=== PATIENT | female | born 1975 | race Caucasian/White ===

== ENCOUNTER 2019-07-10 13:01 | Emergency (ER) | payer OTHER, SELFPAY ==
[2019-07-10 13:16] VITALS: BP 132/67; PULSE 69; RESP 16; TEMP 37.1; O2SAT 99
--- NOTE | 2019-07-10 13:20 | ED.GENADULT ---
HPI - General Adult General Chief complaint: Urogenital-Female Stated complaint: Urination/burn/frequent Time Seen by Provider: 07/10/19 13:22 Source: patient Mode of arrival: ambulatory Limitations: no limitations History of Present Illness HPI narrative: 44-year-old female patient presents to the [facility] with complaints of urinary symptoms for the past 2 to 3 weeks. Patient states that her symptoms of gotten increasingly worse with pain on urination, urgency, frequency. Patient denies any abdominal pain, low back pain, fevers, nausea, vomiting or diarrhea. Patient denies any or breast-feeding at this time. Patient states that she has had a little bit of itching, irritation a little bit of vaginal discharge that she has noticed recently. Patient states that she was seen by her primary doctor in May for what she thought might be a UTI however at that time her doctor states that he did not really see any evidence on her urine dip but thought it might just be starting so he treated her with Keflex. Patient states that some of her symptoms did improve but never felt like it totally went away. Patient states that she recently did get out of the relationship of a boyfriend that was cheating on her. Patient states she has never had an STD that she knows of. Patient denies being tested for STDs in the past. Related Data Home Medications Medication Instructions Recorded Confirmed atorvastatin 20 mg PO DAILY 07/10/19 07/10/19 lisinopril-hydrochlorothiazide 1 tablet PO DAILY 07/10/19 07/10/19 [Zestoretic] Allergies Allergy/AdvReac Type Severity Reaction Status Date / Time No Known Allergies Allergy Unknown Unverified 07/10/19 13:23 Review of Systems Review of Systems: Narrative: CONSTITUTIONAL: Denies fever, chills, or sweats. EYES: Denies visual changes, redness, or discharge. ENT: Denies rhinorrhea, congestion, sore throat, or otalgia. CARDIOVASCULAR: Denies chest pain, palpitations, or edema. RESPIRATORY: Denies cough or dyspnea. GASTROINTESTINAL: Denies abdominal pain, nausea, vomiting, or diarrhea. GENITOURINARY: Denies dysuria or hematuria. Positive pain with urination, urgency, frequency, vaginal discharge and vaginal irritation x2 to 3 weeks SKIN: Denies rash or itching. MUSCULOSKELETAL: Denies back pain, joint pain, or myalgia. NEUROLOGIC: Denies headache, numbness, or weakness. PSYCHIATRIC: Denies anxiety or depression. PMFSH Social History Social History Gender identity (if verbalized by the patient): Female Comments At the time of my signature I agree with nursing past medical history, surgical, social, and family history. There is no relevant family history pertinent to the presenting complaint. Exam Narrative: Exam Narrative: GENERAL: Well-appearing, well-nourished, and in no acute distress. HEAD: Normocephalic, atraumatic. EYES: PERRLA and EOMI. ENT: Nares clear, no rhinorrhea or epistaxis. Mucous membranes moist. NECK: Supple. No lymphadenopathy CHEST: Clear to auscultation. No respiratory distress. HEART: Regular rate and rhythm. No murmur heard. Normal peripheral pulses. ABDOMEN: Soft, nontender, nondistended, normal active bowel sounds. No CVA tenderness on percussion : Normal external female genitalia. OS is closed. No adnexal fullness or TTP. No CVA tenderness to percussion. EXTREMITIES: Normal range of motion. No edema. SKIN: Warm, dry, no rash. NEURO: No focal deficits. Alert and oriented x3. Course Vital Signs Vital signs: Vital Signs Temperature 37.1 C 07/10/19 13:16 Pulse Rate 69 07/10/19 13:16 Respiratory Rate 16 07/10/19 13:16 Blood Pressure 132/67 07/10/19 13:16 Pulse Oximetry 99 07/10/19 13:16 Temperature 37.1 C 07/10/19 13:16 Pulse Rate 69 07/10/19 13:16 Respiratory Rate 16 07/10/19 13:16 Blood Pressure 132/67 07/10/19 13:16 Pulse Oximetry 99 07/10/19 13:16 Vital signs
[2019-07-10] MEDS: AZITHROMYCIN 250 MG TABLET 1000 MG PO (13:46)
[2019-07-10] MEDS: LIDOCAINE HCL 1% LOCAL INJ 20 ML VIAL IM (13:48)
[2019-07-10] MEDS: cefTRIAXone 250 MG VIAL IM (13:49)
== END 2019-07-10 14:06 | disposition home or self-care (01) ==
PROVIDERS: Emergency Provider Nurse Practitioner Family; PCP Internal Medicine Gastroenterology
DX: R30.0 Dysuria (principal); E78.00 Pure hypercholesterolemia, unspecified; I10 Essential (primary) hypertension
CPT/HCPCS: 81003; 87077; 87086; 87088; 87186; 87491; 87591; 87661; 96372; 99214; A9270; G0463; J0696

== ENCOUNTER 2019-08-10 08:28 | Emergency (ER) | payer OTHER, SELFPAY ==
--- NOTE | 2019-08-10 08:38 | ED.SKABFB ---
HPI - Skin/Abscess/Foreign Bdy General Chief complaint: Skin/Abscess/Foreign Body Stated complaint: Rash Time Seen by Provider: 08/10/19 08:38 Source: patient and RN notes reviewed History of Present Illness HPI narrative: Patient is a 44-year-old female that presents the urgent care with complaints of poison nichole to the abdomen, face, stomach, surrounding the right eye. Patient states that she was doing yard work on Tuesday and she has been using [id number] allergy pills, calamine lotion and TecNu scrub. Patient states that she feels it is getting worse . No other acute complaints. Denies any shortness of breath. No acute distress noted. Patient read the plan of care. Related Data Home Medications Medication Instructions Recorded Confirmed atorvastatin [Lipitor] 20 mg PO DAILY 08/10/19 08/10/19 lisinopril-hydrochlorothiazide 1 tablet PO DAILY 08/10/19 08/10/19 [Zestoretic] Allergies Allergy/AdvReac Type Severity Reaction Status Date / Time No Known Allergies Allergy Unknown Verified 08/10/19 08:51 Review of Systems Review of Systems: Narrative: CONSTITUTIONAL: Denies fever, chills, or sweats. EYES: Denies visual changes, redness, or discharge. Reports of increased puffiness and swelling surrounding the right eye ENT: Denies rhinorrhea, congestion, sore throat, or otalgia. CARDIOVASCULAR: Denies chest pain, palpitations, or edema. RESPIRATORY: Denies cough or dyspnea. GASTROINTESTINAL: Denies abdominal pain, nausea, vomiting, or diarrhea. GENITOURINARY: Denies dysuria or hematuria. SKIN: Reports of poison nichole to the abdomen, bilateral arms, face and right eye MUSCULOSKELETAL: Denies back pain, joint pain, or myalgia. NEUROLOGIC: Denies headache, numbness, or weakness. All other systems reviewed are negative, except as documented in HPI. PMFSH Social History Social History Gender identity (if verbalized by the patient): Female Comments At the time of my signature, I reviewed and agree with the nursing past medical, surgical, social, and family history. There is no relevant family history pertinent to the patient complaint. Exam Narrative: Exam Narrative: GENERAL: This is a well-nourished, well-developed patient, in no apparent distress. HEAD: normocephalic, atraumatic. EYES: PERRL. Sclera clear/white. Vision is grossly intact. Moderate edema, erythema periorbital cellulitis to the right eye. EARS: External ears normal NOSE: External nose normal with no obvious nasal discharge THROAT: Mucous membranes moist NECK: Neck supple CARDIOVASCULAR: Regular rate and rhythm without murmurs, gallops, or rubs. RESPIRATORY: Clear to auscultation. Breath sounds equal bilaterally. No wheezes, rales, or rhonchi. SKIN: Pruritic oozing clear drainage ruse dermatitis noted to the face, right abdomen, bilateral antecubital fossa's NEURO: awake, alert, and oriented to person, place and time. There were no obvious focal neurologic abnormalities. EXTREMITIES: No clubbing, cyanosis, or edema. Course Vital Signs Vital signs: Vital Signs Temperature 98.1 F 08/10/19 08:44 Pulse Rate 73 08/10/19 08:44 Respiratory Rate 18 08/10/19 08:44 Blood Pressure 155/97 H 08/10/19 08:44 Pulse Oximetry 100 08/10/19 08:44 Temperature 98.1 F 08/10/19 08:44 Pulse Rate 73 08/10/19 08:44 Respiratory Rate 18 08/10/19 08:44 Blood Pressure 155/97 H 08/10/19 08:44 Pulse Oximetry 100 08/10/19 08:44 Reviewed?patient is informed that they may have pre-hypertension or hypertension based on a blood pressure reading in the department. I recommend the patient call the primary care provider listed on their discharge instructions or a physician of their choice this week to arrange follow-up for further evaluation of possible pre-hypertension or hypertension. MDM - Skin/Abscess/Foreign Bdy MDM Narrative Medical decision making narrative: Advised the patient to clean any
[2019-08-10 08:44] VITALS: BP 155/97; PULSE 73; RESP 18; TEMP 36.7; O2SAT 100
[2019-08-10] MEDS: predniSONE 20 MG TABLET 60 MG PO (09:01)
--- NOTE | 2019-08-10 09:23 | PC.NURSE ---
0845- Pt states she has not taken her HTN medication yet this am.
== END 2019-08-10 09:17 | disposition home or self-care (01) ==
PROVIDERS: Emergency Provider Nurse Practitioner Family; PCP Internal Medicine Gastroenterology
DX: L23.7 Allergic contact dermatitis due to plants, except food (principal); H05.011 Cellulitis of right orbit; E78.00 Pure hypercholesterolemia, unspecified; I10 Essential (primary) hypertension
CPT/HCPCS: 99213; G0463; J7512

== ENCOUNTER 2021-10-07 09:35 | Emergency (ER) | payer OTHER, SELFPAY ==
[2021-10-07 09:42] VITALS: BP 154/88; PULSE 67; RESP 16; TEMP 35.9; O2SAT 100
--- NOTE | 2021-10-07 09:56 | ED.EYEPROB ---
HPI - Eye Problem General Chief complaint: Skin/Abscess/Foreign Body Stated complaint: right eye pain Time Seen by Provider: 10/07/21 09:57 Source: patient Mode of arrival: ambulatory Limitations: no limitations History of Present Illness HPI Narrative: 46 yo female presented for complaint of right eye swelling and itching for 3 days. States the right eye was swollen shut this morning, but is improving. Endorses rash to face/cheeks. She states she was doing yard work and pulling weeds the day prior to the rash. She has applied calamine lotion and taking Benadryl with minimal relief. She denies any other lesions or locations of rash. Denies lip, tongue, throat swelling, shortness of breath or wheezing. Denies eye pain, vision changes, or drainage. She denies foreign body sensation or photophobia. She denies changes to soap, lotion, detergent etc. Related Data Home Medications Medication Instructions Recorded Confirmed atorvastatin 20 mg tablet (Lipitor) 20 mg PO DAILY 08/10/19 10/07/21 lisinopril 20 1 tablet PO DAILY 08/10/19 10/07/21 mg-hydrochlorothiazide 12.5 mg tablet (Zestoretic) Allergies Allergy/AdvReac Type Severity Reaction Status Date / Time No Known Allergies Allergy Unknown Verified 08/10/19 08:51 Review of Systems Review of Systems: CONSTITUTIONAL: Denies body aches, fever, chills, or sweats. EYES: Denies visual changes, redness, or discharge. ENT: Denies rhinorrhea, congestion, sore throat, or otalgia. CARDIOVASCULAR: Denies chest pain, palpitations, or edema. RESPIRATORY: Denies cough or dyspnea. GASTROINTESTINAL: Denies abdominal pain, nausea, vomiting, or diarrhea. SKIN: Reports rash, itching NEUROLOGIC: Denies headache, numbness, tingling, or weakness. [facility] Social History Social History Gender identity (if verbalized by the patient): Female Comments At time of signature, I have reviewed and agree with nursing past medical, surgical, social and family history unless otherwise noted. Please see nursing chart for further information. There is no relevant family history pertinent to the presenting complaint Exam Narrative: GENERAL: Well-appearing, no distress HEAD: Normocephalic, atraumatic. EYES: PERRLA, conjunctivae clear, and EOMI. moderate right periorbital cellulitis, mild erythema. No active drainage. It is not swollen shut. ENT: Mucous membranes moist. Oropharynx without edema, erythema or lesions. NECK: Supple. No lymphadenopathy CHEST: Clear to auscultation. No respiratory distress. HEART: Regular rate and rhythm. SKIN: Warm, dry. Scattered patches of erythematous papules consistent with dermatitis to bilateral cheeks. Right groin with pale pink area, endorses itching, consistent with mild yeast NEURO: Alert and oriented x3. PSYCH: Normal mood and affect Course Course Emergency Course: Patient is aware of diagnosis, understands and agrees to treatment plan. Anticipatory guidance given. Patient agrees to follow-up as directed and is aware of reasons to seek care at the emergency department. Portions of this record may have been created with voice recognition software Level of Care: Express Care Visit Vital Signs Vital signs: Vital Signs Temperature 96.7 F L 10/07/21 09:42 Pulse Rate 67 10/07/21 09:42 Respiratory Rate 16 10/07/21 09:42 Blood Pressure 154/88 H 10/07/21 09:42 Pulse Oximetry 100 10/07/21 09:42 Oxygen Delivery Room Air 10/07/21 09:42 Temperature 96.7 F L 10/07/21 09:42 Pulse Rate 67 10/07/21 09:42 Respiratory Rate 16 10/07/21 09:42 Blood Pressure 154/88 H 10/07/21 09:42 Pulse Oximetry 100 10/07/21 09:42 Oxygen Delivery Room Air 10/07/21 09:42 Reviewed MDM - Eye Problem MDM Narrative Medical decision making narrative: She is advised on [id number] Desenex powder for the right groin redness and itching. Does not appear at this time to be er
== END 2021-10-07 10:12 | disposition home or self-care (01) ==
PROVIDERS: Emergency Provider Nurse Practitioner Family
DX: L03.213 Periorbital cellulitis (principal); L25.9 Unspecified contact dermatitis, unspecified cause; E78.00 Pure hypercholesterolemia, unspecified; I10 Essential (primary) hypertension
CPT/HCPCS: 99213; G0463

== ENCOUNTER 2022-08-26 13:50 | Outpatient (CLI) | payer OTHER, SELFPAY ==
--- NOTE | ~2022-08-26 | MM_ITS ---
EXAMINATION: MM screening mike BI w gabino HISTORY: Screening mammogram TECHNIQUE: Craniocaudal and mediolateral oblique 3-D tomosynthesis images were obtained and synthetic 2-D images were generated. CAD analysis was submitted and interpreted. COMPARISON: No prior mammogram is available for comparison at this institution. BREAST PARENCHYMAL COMPOSITION: There are scattered areas of fibroglandular density. FINDINGS: There is no evidence of suspicious mass, calcification, or architectural distortion to sugg est malignancy in either breast. There has been no suspicious interval change. IMPRESSION: 1. No mammographic evidence of malignancy. 2. Recommend routine screening mammography in one year. BI-RADS Category 1: Negative Reviewed, dictated and finalized at location A.
== END 2022-08-26 13:51 ==
PROVIDERS: PCP Internal Medicine Gastroenterology; Visit Provider Nurse Practitioner Obstetrics & Gynecology
DX: Z12.31 Encounter for screening mammogram for malignant neoplasm of breast (principal)
CPT/HCPCS: 77063; 77067

== ENCOUNTER 2023-09-05 13:41 | Emergency (ER) | payer OTHER, SELFPAY ==
[2023-09-05 13:55] VITALS: BP 150/88; PULSE 64; RESP 18; TEMP 36.8; O2SAT 100
--- NOTE | 2023-09-05 13:56 | ED.FEMALEGU ---
HPI - Female Genitourinary General Chief complaint: Urogenital-Female Stated complaint: urinary issue Time Seen by Provider: 09/05/23 13:56 Source: patient Mode of arrival: ambulatory Limitations: no limitations History of Present Illness HPI Narrative: 48-year-old female presents with complaint of urinary frequency, urgency, dysuria for 2 days. Afebrile. Patient concerned for urinary tract infection. Patient also reports itching and dry skin to upper eyelids for 1 week. Call primary care physician for appointment and cannot see patient for 1 month. All systems reviewed and negative except as noted above. Related Data Home Medications Medication Instructions Recorded Confirmed atorvastatin 20 mg tablet (Lipitor) 20 mg PO DAILY 08/10/19 09/05/23 diltiazem HCl 120 mg 120 mg PO DAILY 09/05/23 09/05/23 capsule,extended release 24 hr lisinopril 20 1 tablet PO DAILY 09/05/23 09/05/23 mg-hydrochlorothiazide 25 mg tablet Allergies Allergy/AdvReac Type Severity Reaction Status Date / Time No Known Allergies Allergy Unknown Verified 08/10/19 08:51 Review of Systems Review of Systems: CONSTITUTIONAL: Denies fever, chills, or sweats. EYES: Denies visual changes, redness, or discharge. ENT: Denies rhinorrhea, congestion, sore throat, or otalgia. CARDIOVASCULAR: Denies chest pain, palpitations, or edema. RESPIRATORY: Denies cough or dyspnea. GASTROINTESTINAL: Denies abdominal pain, nausea, vomiting, or diarrhea. GENITOURINARY: Reports dysuria, frequency, urgency. Denies hematuria. SKIN: Denies rash. Reports itching dry skin to upper eyelids. MUSCULOSKELETAL: Denies back pain, joint pain, or myalgia. NEUROLOGIC: Denies headache, numbness, or weakness. PSYCHIATRIC: Denies anxiety or depression. All other systems reviewed are negative, except as documented in HPI. PMFSH Social History Social History Gender identity (if verbalized by the patient): Female Comments At time of signature, agree with nursing past medical, surgical, social and family history. There is no relevant family history pertinent to the presenting complaint. Exam Narrative: GENERAL: This is a well-nourished, well-developed patient, in no apparent distress. HEAD: normocephalic, atraumatic. EYES: PERRL. Sclera clear/white. Vision is grossly intact. EARS: External ears normal NOSE: External nose normal NECK: Neck supple, non-tender without lymphadenopathy, masses or thyromegaly. CARDIOVASCULAR: Regular rate and rhythm without murmurs, gallops, or rubs. RESPIRATORY: Clear to auscultation. Breath sounds equal bilaterally. No wheezes, rales, or rhonchi. SKIN: warm, Dry, intact with no suspicious lesions or rash, good texture and turgor. Erythematous, dry skin to bilateral upper eyelids NEURO: awake, alert, and oriented to person, place and time. There were no obvious focal neurologic abnormalities. EXTREMITIES: No joint tenderness, effusion, or edema noted. Course Course Level of Care: Express Care Visit Vital Signs Vital signs: Vital Signs Temperature 36.8 C 09/05/23 13:55 Pulse Rate 64 09/05/23 13:55 Respiratory Rate 18 09/05/23 13:55 Blood Pressure 150/88 H 09/05/23 13:55 Pulse Oximetry 100 09/05/23 13:55 Oxygen Delivery Room Air 09/05/23 13:55 Temperature 36.8 C 09/05/23 13:55 Pulse Rate 64 09/05/23 13:55 Respiratory Rate 18 09/05/23 13:55 Blood Pressure 150/88 H 09/05/23 13:55 Pulse Oximetry 100 09/05/23 13:55 Oxygen Delivery Room Air 09/05/23 13:55 reviewed MDM - Female Genitourinary MDM Narrative Medical decision making narrative: Patient is aware of diagnosis, understands and agrees to treatment plan. Anticipatory guidance given. Patient agrees to follow-up as directed and is aware of reasons to seek care at the emergency department. Portions of this record may have been created with voice recognition softw
== END 2023-09-05 14:20 | disposition home or self-care (01) ==
PROVIDERS: Emergency Provider Nurse Practitioner Family; PCP Internal Medicine Gastroenterology
DX: N39.0 Urinary tract infection, site not specified (principal); H01.134 Eczematous dermatitis of left upper eyelid; H01.131 Eczematous dermatitis of right upper eyelid
CPT/HCPCS: 81003; 87077; 87086; 87088; 87147; 87186; 99213; G0463

== ENCOUNTER 2023-10-19 08:42 | Emergency (ER) | payer OTHER, SELFPAY ==
[2023-10-19 08:58] VITALS: BP 133/63; PULSE 63; RESP 16; TEMP 36.8; O2SAT 99
--- NOTE | 2023-10-19 09:06 | ED.FEMALEGU ---
HPI - Female Genitourinary General Chief complaint: Urogenital-Female Stated complaint: urinary issue Time Seen by Provider: 10/19/23 09:06 Source: patient Mode of arrival: ambulatory Limitations: no limitations History of Present Illness HPI Narrative: 48-year-old female presents with complaint of urinary frequency, urgency, dysuria for 3 days. Afebrile. No back or abdominal pain. Denies nausea vomiting. Reports she had same symptoms approximately 1 month ago, had a urinary tract infection. All Systems reviewed and negative except as noted above. Related Data Home Medications Medication Instructions Recorded Confirmed atorvastatin 20 mg tablet (Lipitor) 20 mg PO DAILY 08/10/19 10/19/23 diltiazem HCl 120 mg 120 mg PO DAILY 09/05/23 10/19/23 capsule,extended release 24 hr lisinopril 20 1 tablet PO DAILY 09/05/23 10/19/23 mg-hydrochlorothiazide 25 mg tablet Allergies Allergy/AdvReac Type Severity Reaction Status Date / Time No Known Allergies Allergy Unknown Verified 10/19/23 09:06 Review of Systems Review of Systems: CONSTITUTIONAL: Denies fever, chills, or sweats. EYES: Denies visual changes, redness, or discharge. ENT: Denies rhinorrhea, congestion, sore throat, or otalgia. CARDIOVASCULAR: Denies chest pain, palpitations, or edema. RESPIRATORY: Denies cough or dyspnea. GASTROINTESTINAL: Denies abdominal pain, nausea, vomiting, or diarrhea. GENITOURINARY: reports dysuria, urgency, frequency. Denies hematuria. SKIN: Denies rash or itching. MUSCULOSKELETAL: Denies back pain, joint pain, or myalgia. NEUROLOGIC: Denies headache, numbness, or weakness. PSYCHIATRIC: Denies anxiety or depression. All other systems reviewed are negative, except as documented in HPI. PMFSH Social History Social History Gender identity (if verbalized by the patient): Female Comments At time of signature, agree with nursing past medical, surgical, social and family history. There is no relevant family history pertinent to the presenting complaint. Exam Narrative: GENERAL: This is a well-nourished, well-developed patient, in no apparent distress. HEAD: normocephalic, atraumatic. EYES: PERRL. Sclera clear/white. Vision is grossly intact. EARS: External ears normal NOSE: External nose normal NECK: Neck supple, non-tender without lymphadenopathy, masses or thyromegaly. CARDIOVASCULAR: Regular rate and rhythm without murmurs, gallops, or rubs. RESPIRATORY: Clear to auscultation. Breath sounds equal bilaterally. No wheezes, rales, or rhonchi. SKIN: warm, Dry, intact with no suspicious lesions or rash, good texture and turgor. NEURO: awake, alert, and oriented to person, place and time. There were no obvious focal neurologic abnormalities. EXTREMITIES: No joint tenderness, effusion, or edema noted. Course Course Level of Care: Express Care Visit Vital Signs Vital signs: Vital Signs Temperature 36.8 C 10/19/23 08:58 Pulse Rate 63 10/19/23 08:58 Respiratory Rate 16 10/19/23 08:58 Blood Pressure 133/63 10/19/23 08:58 Pulse Oximetry 99 10/19/23 08:58 Oxygen Delivery Room Air 10/19/23 08:58 Temperature 36.8 C 10/19/23 08:58 Pulse Rate 63 10/19/23 08:58 Respiratory Rate 16 10/19/23 08:58 Blood Pressure 133/63 10/19/23 08:58 Pulse Oximetry 99 10/19/23 08:58 Oxygen Delivery Room Air 10/19/23 08:58 reviewed MDM - Female Genitourinary MDM Narrative Medical decision making narrative: Patient is aware of diagnosis, understands and agrees to treatment plan. Anticipatory guidance given. Patient agrees to follow-up as directed and is aware of reasons to seek care at the emergency department. Portions of this record may have been created with voice recognition software Differential Diagnosis Differential diagnosis: Likely urinary tract infection Lab Data Labs: Urine Glucose Negative
== END 2023-10-19 09:16 | disposition home or self-care (01) ==
PROVIDERS: Emergency Provider Nurse Practitioner Family
DX: N39.0 Urinary tract infection, site not specified (principal); B96.20 Unspecified Escherichia coli [E. coli] as the cause of diseases classified elsewhere; E78.00 Pure hypercholesterolemia, unspecified; I10 Essential (primary) hypertension
CPT/HCPCS: 81003; 87077; 87086; 87088; 87186; 99213; G0463

== ENCOUNTER 2023-12-19 09:01 | Emergency (ER) | payer OTHER, SELFPAY ==
[2023-12-19 09:07] VITALS: BP 123/75; PULSE 62; RESP 16; TEMP 36.7; O2SAT 99
--- NOTE | 2023-12-19 09:44 | ED.SKABFB ---
HPI - Skin/Abscess/Foreign Bdy General Chief complaint: Skin/Abscess/Foreign Body Stated complaint: rash on face Time Seen by Provider: 12/19/23 09:45 Source: patient, RN notes reviewed and old records reviewed Mode of arrival: ambulatory Limitations: no limitations History of Present Illness HPI narrative: Patient presents with complaints of red itchy rash that she believes to be poison nichole. She reports rash began 2 days ago. Reports she had been doing yd work 3 days ago in an area that she believes has poison nichole. She reports that she has been taking Benadryl and using topical creams, the rash is spreading in spite of her effort. She became concerned when it spread to her face today. Initially rash was only on the arms. Related Data Home Medications Medication Instructions Recorded Confirmed atorvastatin 20 mg tablet (Lipitor) 20 mg PO DAILY 08/10/19 12/19/23 lisinopril 20 1 tablet PO DAILY 09/05/23 12/19/23 mg-hydrochlorothiazide 25 mg tablet diltiazem HCl 120 mg 120 mg PO DIRECTED 12/19/23 12/19/23 capsule,extended release 24 hr Allergies Allergy/AdvReac Type Severity Reaction Status Date / Time No Known Allergies Allergy Unknown Verified 10/19/23 09:06 Review of Systems Review of Systems: All systems reviewed & are unremarkable except as noted in HPI and below Constitutional: Constitutional: Reports no additional constitutional complaints ENT: Reports system reviewed and no additional complaints, except as documented Cardiovascular: Cardiovascular: Reports no additional cardiovascular complaints Respiratory: Respiratory: Reports no additional respiratory complaints Gastrointestinal: Gastrointestinal: Reports no additional gastrointestinal complaints Integumentary/Breasts: Skin/Breast: Reports system reviewed and no additional complaints, except as docu, Reports as per HPI and Reports rash [facility] Social History Social History Gender identity (if verbalized by the patient): Female Comments At the time of my signature, I reviewed and agree with the nursing past medical, surgical, social, and family history. There is no relevant family history pertinent to the patient complaint. Exam Const: General: cooperative, no acute distress, alert and awake Orientation/consciousness: oriented to person, oriented to place and oriented to time HENMT: Head: normal to inspection Resp: Effort & Inspection: normal respiratory effort and able to speak in complete sentences Auscultation: clear to auscultation bilaterally, no crackles, no rales, no rhonchi and no wheezes Cardio: Palpation: normal PMI Rate: regular rate Rhythm: regular rhythm Heart sounds: S1 normal heart sound present and S2 normal heart sound present Skin: Rashes: rashes noted (face, arms) Other: Red maculopapular rash consistent with poison nichole to face, bilateral arms. Right arm worse than left. No involvement of the globe, but does have bilateral eyelid involvement Neuro: General: oriented to person, oriented to place and oriented to time Cranial nerves: Yes CN's II-XII intact bilaterally Psych: Appearance: grossly normal Thought process: Normal thought process present Insight: Good insight present (Psych) Judgement: Good judgement present (Psych) Course Course Level of Care: Express Care Visit Vital Signs Vital signs: Vital Signs Temperature 98.1 F 12/19/23 09:07 Pulse Rate 62 12/19/23 09:07 Respiratory Rate 16 12/19/23 09:07 Blood Pressure 123/75 12/19/23 09:07 Pulse Oximetry 99 12/19/23 09:07 Oxygen Delivery Room Air 12/19/23 09:07 Temperature 98.1 F 12/19/23 09:07 Pulse Rate 62 12/19/23 09:07 Respiratory Rate 16 12/19/23 09:07 Blood Pressure 123/75 12/19/23 09:07 Pulse Oximetry 99 12/19/23 09:07 Oxygen Delivery Room Air 12/19/23 09:07 Reviewed MDM - Skin/Abscess/Foreign Bdy MDM Narrative Medical decision forrest
== END 2023-12-19 09:59 | disposition home or self-care (01) ==
PROVIDERS: Emergency Provider Nurse Practitioner Family; PCP Internal Medicine Gastroenterology
DX: L23.7 Allergic contact dermatitis due to plants, except food (principal); E78.00 Pure hypercholesterolemia, unspecified; I10 Essential (primary) hypertension
CPT/HCPCS: 99213; G0463

== ENCOUNTER 2024-08-14 13:55 | Emergency (ER) | payer OTHER, SELFPAY ==
--- NOTE | 2024-08-14 14:07 | ED.FEMALEGU ---
HPI - Female Genitourinary General Chief complaint: Urogenital-Female Stated complaint: urinary issue Time Seen by Provider: 08/14/24 14:24 Source: patient and RN notes reviewed Mode of arrival: ambulatory Limitations: no limitations History of Present Illness HPI Narrative: 49-year-old female with history of urinary tract infections presents with concern for 3 day history of urine frequency, urgency, dysuria, bilateral low back pain, general malaise, chills, nausea. She denies vomiting, denies concern for STDs. Denies abnormal vaginal discharge MD elicited complaint: UTI Related Data Home Medications ?Medication ?Instructions ?Recorded ?Confirmed ?Last Taken ?Type atorvastatin 20 mg tablet (Lipitor) 20 mg PO DAILY 08/10/19 12/19/23 Unknown History lisinopril 20 1 tablet PO DAILY 09/05/23 12/19/23 Unknown History mg-hydrochlorothiazide 25 mg tablet diltiazem HCl 120 mg 120 mg PO DIRECTED 12/19/23 12/19/23 Unknown History capsule,extended release 24 hr Allergies Allergy/AdvReac Type Severity Reaction Status Date / Time No Known Allergies Allergy Unknown Verified 08/14/24 13:57 Review of Systems Review of Systems: CONSTITUTIONAL: Reports malaise, chills. Denies sweats, or fever. CARDIOVASCULAR: Denies chest pain, palpitations, or edema. RESPIRATORY: Denies cough or dyspnea. GASTROINTESTINAL: Denies abdominal pain, nausea, vomiting, diarrhea GENITOURINARY: Reports dysuria, frequency, urgency. Denies flank pain or hematuria. SKIN: Denies rash or itching. MUSCULOSKELETAL: Reports bilateral left back pain. Denies myalgia. All systems reviewed & are unremarkable except as noted in HPI and below PMFSH Social History Social History Gender identity (if verbalized by the patient): Female Comments At time of signature, agree with nursing past medical, surgical, social and family history. There is no relevant family history pertinent to the presenting complaint Exam Narrative: GENERAL: Well-appearing, well-nourished, and in no acute distress. HEAD: Normocephalic. EYES: PERRLA, conjunctivae clear. NECK: Supple. No lymphadenopathy CHEST: Clear to auscultation. No respiratory distress. HEART: Regular rate and rhythm. ABDOMEN: Soft, suprapubic tenderness, nondistended, normal active bowel sounds, no palpable or pulsatile masses, no guarding. No CVA tenderness SKIN: Warm, dry, no rash. NEURO: Alert and oriented x3. PSYCH: Normal mood and affect Course Course Emergency Course: Patient is aware of diagnosis, understands and agrees to treatment plan. Anticipatory guidance given. Patient agrees to follow-up as directed and is aware of reasons to seek care at the emergency department. Portions of this record may have been created with voice recognition software Level of Care: Express Care Visit Vital Signs Vital signs: Reviewed. MDM - Female Genitourinary MDM Narrative Medical decision making narrative: Exam findings and UA show no acute concerns or changes; patient is non-toxic appearing and is in no distress. Patient is appropriate for outpatient treatment and follow-up. Differential Diagnosis Differential diagnosis: Likely urinary tract infection and cystitis Critical Care Time Critical Care Time Critical Care Time: No Discharge Plan Discharge Clinical Impression: Symptoms of urinary tract infection Patient Disposition: Home Condition: Stable Instructions: Antibiotic Form, Urinary Tract Infection in Women (ED) Additional Instructions: We will send a urine culture to the lab; if the culture identifies an organism that the prescribed antibiotic will not treat, you will receive a phone call from an urgent care staff member and an appropriate antibiotic will be prescribed. -Your symptoms should begin to improve within a day of starting antibiotics. But you should finish all the antibiotic pills you get. Otherwise your infection might come back. -Also recommend: increase water intake. Tylenol/ibuprofen as needed for pain or fever -Follow-up with your primary care provider for urine recheck or seek ER visit if condition worsens with high fever, nausea, vomiting and severe back pain. Patient Language: Japanese Prescriptions: New amoxicillin-pot clavulanate 875-125 mg tablet 1 tablet PO Q12H 10 Days Qty: 20 0RF No Action lisinopril-hydrochlorothiazide 20-25 mg tablet 1 tablet PO DAILY diltiazem HCl 120 mg capsule,extended release 24hr 120 mg PO DIRECTED atorvastatin [Lipitor] 20 mg Tablet 20 mg PO DAILY Follow-up/Referrals: Benjy,Ad Jose MD [Primary Care Provider] - Stand Alone Forms: Work/School Release IP Time of Disposition: 14:29
[2024-08-14 14:08] VITALS: BP 129/80; PULSE 70; RESP 14; TEMP 36.8; O2SAT 100
[2024-08-14 14:10] LABS: EDUAAPPEAR Clear; EDUABILI Negative (Negative); EDUABLOOD Negative (Negative); EDUACOLOR1 Yellow; EDUAGLUCOSE Negative (Negative); EDUAKETONE Negative (Negative); EDUALEUKO Negative (Negative); EDUANITRATE Negative (Negative); EDUAPROTEIN Negative (Negative); EDUASPGRAVITY 1.015; EDUAUROBILI 0.2
== END 2024-08-14 14:35 | disposition home or self-care (01) ==
PROVIDERS: Emergency Provider Nurse Practitioner; PCP Internal Medicine Gastroenterology
DX: R35.0 Frequency of micturition (principal); R30.0 Dysuria; R39.15 Urgency of urination
CPT/HCPCS: 81003; 87086; 99213; G0463